=== PATIENT | male | born 1970 | race Two or more races ===

== ENCOUNTER 2017-06-01 05:27 | Emergency (ER) | payer SELFPAY ==
[~2017-06-01] VITALS: Ht 177.8 cm; Wt 110.0 kg
[2017-06-01] MEDS ORDERED: ondansetron/PF 4mg/2ml inj IM ONE (05:45)
[2017-06-01] MEDS ORDERED: morphine 4 MG/ML inj SYRINge IM ONE (05:45)
[2017-06-01] MEDS ORDERED: colchicine 0.6mg tablet PO ONE (05:45)
[2017-06-01] MEDS ORDERED: ibuprofen tablet 400 MG TABLET PO ONE (05:45)
[2017-06-01] MEDS ORDERED: triamcinolone acetonide 40mg/ml inj IM ONE (06:05)
[2017-06-01] MEDS ORDERED: COLC0.6T69 PO (06:06)
[2017-06-01 06:53] VITALS: BP 159/106
== END 2017-06-01 06:59 | disposition home or self-care (01) ==
LOC: ER 05:28
DX: M10.9 Gout, unspecified (principal); Z88.8 Allergy status to other drugs, medicaments and biological substances; Z79.899 Other long term (current) drug therapy
CPT/HCPCS: 96372; 99284; J2270; J2405; J3301

== ENCOUNTER 2018-12-23 15:03 | Emergency (ER) | payer OTHER ==
[~2018-12-23] VITALS: Ht 177.8 cm; Wt 96.4 kg
[~2018-12-23 15:03] MED LIST: COLC0.6T69 PO
[2018-12-23] MEDS ORDERED: methylPREDNISolone sod succ 125mg/2ml vial IV ONE (15:45)
[2018-12-23 16:11] LABS: BASOPHILS # (AUTO) 0.1 X10'3 (0-0.2); BASOPHILS % (AUTO) 0.8 % (0-1); EOSINOPHILS # (AUTO) 0.3 X10'3 (0-0.9); EOSINOPHILS % (AUTO) 2.6 % (0-6); HEMATOCRIT 40.8 % (42.0-52.0); HEMOGLOBIN 13.9 g/dl (14.0-17.9); LYMPHOCYTES # (AUTO) 2.1 X10'3 (1.1-4.8); LYMPHOCYTES % (AUTO) 16.6 % (21-51); MEAN CORPUSCULAR HEMOGLOBIN 29.2 PG (27.0-31.0); MEAN CORPUSCULAR VOLUME 85.9 FL (78-98); MEAN PLATELET VOLUME 8.7 FL (7.4-10.4); MONOCYTES # (AUTO) 1.1 X10'3 (0-0.9); MONOCYTES % (AUTO) 8.8 % (2-12); NEUTROPHILS # (AUTO) 8.9 X10'3 (1.8-7.7); NEUTROPHILS % (AUTO) 71.2 % (42-75); PLATELET COUNT 282 X10'3 (140-440); RED BLOOD COUNT 4.76 X10'6 (4.70-6.10); RED CELL DISTRIBUTION WIDTH 13.8 % (11.5-14.5); WHITE BLOOD COUNT 12.5 X10'3 (4.5-11.0)
[2018-12-23 16:51] LABS: ALBUMIN 3.7 G/DL (3.4-5.0); ANION GAP 10 (8-16); BLOOD UREA NITROGEN 11 MG/DL (7-18); BUN/CREATININE RATIO 9.6 (5.4-32.0); CHLORIDE 104 MMOL/L (99-107); CREATININE 1.14 MG/DL (0.60-1.10); GLUCOSE 113 MG/DL (70-104); POTASSIUM 3.9 MMOL/L (3.5-5.1); SODIUM 139 MMOL/L (135-145); TOTAL CARBON DIOXIDE 24.6 MMOL/L (24-32); eGFR 69 ML/MIN
[2018-12-23] MEDS ORDERED: morphine 4 MG/ML inj SYRINge IV ONE ×2 (17:20→19:15)
[2018-12-23] MEDS ORDERED: ondansetron/PF 4mg/2ml inj IV ONE (17:20)
[2018-12-23] MEDS ORDERED: CEPH-572 PO (17:47)
[2018-12-23] MEDS ORDERED: HYDR-4353 PO (17:47)
[2018-12-23] MEDS ORDERED: iohexol 300mg/ml 100ml inj. ONE (17:48)
--- NOTE | 2018-12-23 17:50 | NUR ---
PT TO CT
--- NOTE | 2018-12-23 19:13 | NUR ---
pt with stable vs. reprots pain went down to 2 out of 10 when first given msiv 1.5 hr ago. states it is increasing now and up to 5 out of 10. at bedside. up for reeval, Ct now read. Pt polite and cooperative.
--- NOTE | 2018-12-23 19:16 | NUR ---
DR. BHATTI UPDATED THAT PT'S PAIN INCREASING, WILL ORDER MSIV AGAIN . REPROTS HE WILL NEED TO TAP PT'S JOINT.
[2018-12-23] MEDS ORDERED: LIDOcaine 1% 30ml preserv. free vial IJ ONE (19:35)
--- NOTE | 2018-12-23 19:53 | NUR ---
dr silva at bedside to tap pts joint in left hand
--- NOTE | 2018-12-23 20:53 | NUR ---
dr silva to bedside talking with and Pt about plan of care. awaiting resulting of synovial fluid specimin.
[2018-12-23 21:14] LABS: APPEARANCE,SYNOVIAL FLUID CLOUDY; COLOR,SYNOVIAL FLUID YELLOW
[2018-12-23 21:15] LABS: CRYSTAL ID, SYN FLD URIC ACID; SYN RBC 644 /CU MM (0); SYN WBC 22500 /CU MM (0-200); SYNOVIAL FLUID CRYSTALS QT MANY
[2018-12-23] MEDS ORDERED: HYDR-4383 PO (21:27)
[2018-12-23] MEDS ORDERED: COLC0.6T69 PO (21:28)
[2018-12-23] MEDS ORDERED: HYDROcodone/acetaminophen 5mg/325mg tablet PO ONE (21:30)
[2018-12-23 21:50] VITALS: BP 130/83
== END 2018-12-23 21:52 | disposition home or self-care (01) ==
LOC: ER 15:04
DX: M25.532 Pain in left wrist (principal); M79.642 Pain in left hand; M10.9 Gout, unspecified; Z88.6 Allergy status to analgesic agent; Z79.899 Other long term (current) drug therapy
CPT/HCPCS: 20605; 36415; 73201; 80048; 84145; 84550; 85025; 85651; 87070; 89051; 89060; 96374; 96375; 96376; 99284; J2001; J2270; J2405; J2930; Q9967

== ENCOUNTER 2019-04-30 15:15 | Emergency (ER) | payer MEDICAID, OTHER ==
[~2019-04-30] VITALS: Ht 177.8 cm; Wt 111.4 kg
[~2019-04-30 15:15] MED LIST changes: +HYDR-4383 PO
[2019-04-30 16:15] LABS: BASOPHILS # (AUTO) 0.1 X10'3 (0-0.2); BASOPHILS % (AUTO) 0.8 % (0-1); EOSINOPHILS # (AUTO) 0.2 X10'3 (0-0.9); EOSINOPHILS % (AUTO) 1.2 % (0-6); HEMATOCRIT 38.3 % (42.0-52.0); HEMOGLOBIN 13.1 g/dl (14.0-17.9); LYMPHOCYTES # (AUTO) 2.6 X10'3 (1.1-4.8); LYMPHOCYTES % (AUTO) 15.9 % (21-51); MEAN CORPUSCULAR HEMOGLOBIN 28.1 PG (27.0-31.0); MEAN CORPUSCULAR HGB CONC 34.2 g/dL (33.0-36.5); MEAN CORPUSCULAR VOLUME 82.2 FL (78-98); MONOCYTES # (AUTO) 1.3 X10'3 (0-0.9); MONOCYTES % (AUTO) 8.1 % (2-12); NEUTROPHILS # (AUTO) 12.1 X10'3 (1.8-7.7); PLATELET COUNT 482 X10'3 (140-440); RED BLOOD COUNT 4.66 X10'6 (4.70-6.10); RED CELL DISTRIBUTION WIDTH 15.1 % (11.5-14.5); WHITE BLOOD COUNT 16.3 X10'3 (4.5-11.0)
[2019-04-30 16:36] LABS: ALANINE AMINOTRANSFERASE 31 U/L (12-78); ALBUMIN 3.6 G/DL (3.4-5.0); ALBUMIN/GLOBULIN RATIO 0.6 (1.1-1.5); ALKALINE PHOSPHATASE 177 IU/L (46-116); ANION GAP 13 (8-16); ASPARTATE AMINO TRANSFERASE 18 U/L (10-37); BILIRUBIN,TOTAL 0.4 MG/DL (0.1-1.0); BLOOD UREA NITROGEN 20 MG/DL (7-18); BUN/CREATININE RATIO 18.7 (5.4-32.0); CALCIUM 9.5 MG/DL (8.5-10.1); CHLORIDE 98 MMOL/L (99-107); CREATININE 1.07 MG/DL (0.60-1.10); GLUCOSE 128 MG/DL (70-104); POTASSIUM 4.1 MMOL/L (3.5-5.1); SODIUM 135 MMOL/L (135-145); TOTAL CARBON DIOXIDE 24.2 MMOL/L (24-32); TOTAL PROTEIN 9.2 G/DL (6.4-8.2); eGFR 74 ML/MIN
[2019-04-30] MEDS ORDERED: ketorolac tromethamine 15mg/ml inj. IV ONE (17:05)
[2019-04-30] MEDS ORDERED: morphine 2 MG/ML inj. syringe IV ONE (17:05)
[2019-04-30] MEDS ORDERED: ACET-3068 PO (17:16)
[2019-04-30] MEDS ORDERED: IBUP-1984 PO (17:16)
[2019-04-30 19:03] VITALS: BP 126/84
== END 2019-04-30 19:39 | disposition home or self-care (01) ==
LOC: ER 15:16
DX: M10.9 Gout, unspecified (principal); E11.9 Type 2 diabetes mellitus without complications; F17.200 Nicotine dependence, unspecified, uncomplicated; Z88.6 Allergy status to analgesic agent; Z79.899 Other long term (current) drug therapy
CPT/HCPCS: 36415; 71045; 80053; 82948; 84484; 84550; 85025; 93005; 96374; 96375; 99284; J1885; J2270

== ENCOUNTER 2019-12-29 17:59 | Emergency (ER) | payer MEDICAID, OTHER ==
[~2019-12-29] VITALS: Ht 177.8 cm; Wt 96.5 kg
[~2019-12-29 17:59] MED LIST changes: +IBUP-1984 PO
--- NOTE | 2019-12-29 18:34 | NUR ---
PT IS RESTING QUIETLY ON GURNEY, HAS BEEN EVALUATED BY PROVIDER, PT C/O TONGUE FEELING "LIKE IT WAS SCALDED", DECREASED ROM TO JAW, VOICE HAS CHANGED, BARELY ABLE TO SWALLOW OWN SALVIA, HASN'T EATEN SINCE MONDAY, HAS HAD NO H/O OF DENTAL CARE,
[2019-12-29] MEDS ORDERED: PENI500T2 PO (18:52)
[2019-12-29] MEDS ORDERED: penicillin V potassium 500mg tablet PO ONE (19:05)
--- NOTE | 2019-12-29 19:25 | NUR ---
found pt outside room [facility] between 15 and 14 reading room 14 patient's chart, inform the patient he can't do that and directed him back to go back in his room 15, pt refused to follow direction and got upset and starts yelling, security notified and redirected pt back in room 15, nurse kole and mellisa KENDALL made aware.
[2019-12-29] MEDS ORDERED: HYDROcodone/acetaminophen 5mg/325mg tablet PO ONE (19:35)
[2019-12-29] MEDS ORDERED: ondansetron 4mg rapidly disintigrating tab PO ONE (19:35)
--- NOTE | 2019-12-29 19:40 | NUR ---
pt able to swallow PO pills, gave pt water and jello, brittany well,no n/v
[2019-12-29 20:17] VITALS: BP 152/90
== END 2019-12-29 20:21 | disposition home or self-care (01) ==
LOC: ER 17:59
DX: K02.9 Dental caries, unspecified (principal); E11.9 Type 2 diabetes mellitus without complications; R11.0 Nausea; Z88.6 Allergy status to analgesic agent; Z79.899 Other long term (current) drug therapy
CPT/HCPCS: 99284